=== PATIENT | male | born 1940 | race Caucasian/White ===

== ENCOUNTER 2017-04-01 13:51 | Observation (INO) | payer OTHER ==
[~2017-04-01] VITALS: Ht 180.3 cm; Wt 107.5 kg
[2017-04-01 14:39] LABS: microscopic required? NO
[2017-04-01 14:45] LABS: BASOPHIL % 0.6 % (0-2); PLATELET COUNT 166 x10^3mcL (130-400); RED CELL DISTRIBUTION WIDTH 14.4 % (11.5-14.5)
[2017-04-01 14:50] LABS: UA SPECIFIC GRAVITY 1.025 (1.005-1.035); urine erythrocyte NEGATIVE (NEGATIVE)
[2017-04-01 14:59] LABS: CALCIUM 8.8 mg/dL (8.5-10.1); CARBON DIOXIDE 26.7 mmol/L (21-32); CHLORIDE SERUM 102 mmol/L (98-107); CREATININE SERUM 1.1 mg/dL (0.7-1.3); GLUCOSE SERUM 139 mg/dL (74-106); POTASSIUM SERUM 3.5 mmol/L (3.5-5.1); SODIUM SERUM 141 mmol/L (136-145)
[2017-04-01 15:11] LABS: ALBUMIN 3.6 g/dL (3.4-5.0); ALKALINE PHOSPHATASE 48 U/L (46-116); ALT/SGPT 16 U/L (16-63); AST/SGOT 16 U/L (15-37); BILIRUBIN TOTAL 0.8 mg/dL (0.20-1.00); TOTAL PROTEIN, SERUM 6.8 g/dL (6.4-8.2)
[2017-04-01 15:12] LABS: CK-MB 1.1 ng/mL (0-3.6)
[2017-04-01] MEDS ORDERED: NEU300 PO (15:57)
[2017-04-01] MEDS ORDERED: HYDRALAZINE HCL25 MG PO (15:57)
[2017-04-01] MEDS ORDERED: SYNTHROID0.075 MG PO (15:57)
[2017-04-01] MEDS ORDERED: PRILOSEC OTC20 M1 PO (15:57)
[2017-04-01] MEDS ORDERED: ZESTRIL20 MG PO (15:58)
[2017-04-01] MEDS ORDERED: VITAMIN-D1000 IU PO (15:58)
[2017-04-01] MEDS ORDERED: ASPIR 8181 MG PO (15:58)
[2017-04-01] MEDS ORDERED: VITAMIN B121000 MCG PO (15:58)
[2017-04-01 16:42] LABS: MAGNESIUM 2.1 mg/dL (1.8-2.4); PHOSPHOROUS 2.6 mg/dL (2.5-4.9)
[2017-04-01 16:43] VITALS: BP 173/65
[2017-04-01 16:47] LABS: AMPHETAMINE QUAL UR NONE DETECTED (NEG <=1000)
[2017-04-01 16:48] LABS: CHOLESTEROL/HDL RATIO 2.2
[2017-04-01 21:05] VITALS: BP 171/90
[2017-04-02 05:33] VITALS: BP 138/70
[2017-04-02 07:13] LABS: CALCIUM 8.5 mg/dL (8.5-10.1); CARBON DIOXIDE 28.1 mmol/L (21-32); CHLORIDE SERUM 103 mmol/L (98-107); CREATININE SERUM 0.8 mg/dL (0.7-1.3); GLUCOSE SERUM 109 mg/dL (74-106); MAGNESIUM 1.9 mg/dL (1.8-2.4); PHOSPHOROUS 2.2 mg/dL (2.5-4.9); POTASSIUM SERUM 3.6 mmol/L (3.5-5.1); SODIUM SERUM 140 mmol/L (136-145)
[2017-04-02 07:52] LABS: BASOPHIL % 0.3 % (0-2); PLATELET COUNT 134 x10^3mcL (130-400)
[2017-04-02] MEDS ORDERED: ACETAMINOPHEN-H1 TA1 PO (09:46)
[2017-04-02 09:56] VITALS: BP 138/70
[2017-04-02 10:24] VITALS: BP 121/53
== END 2017-04-02 13:09 | disposition home or self-care (01) | DRG 445 ==
LOC: ED 13:51 → DU 15:51
PROVIDERS: Emergency Medicine; Family Medicine
DX: K80.20 Calculus of gallbladder without cholecystitis without obstruction (principal); R65.10 Systemic inflammatory response syndrome (SIRS) of non-infectious origin without acute organ dysfunction; I16.0 Hypertensive urgency; K21.9 Gastro-esophageal reflux disease without esophagitis; I25.10 Atherosclerotic heart disease of native coronary artery without angina pectoris; I71.9 Aortic aneurysm of unspecified site, without rupture; G62.9 Polyneuropathy, unspecified; E55.9 Vitamin D deficiency, unspecified; E03.9 Hypothyroidism, unspecified; Z68.33 Body mass index [BMI] 33.0-33.9, adult; Z87.891 Personal history of nicotine dependence; Z79.82 Long term (current) use of aspirin
CPT/HCPCS: 83880; G0378; J1885; J2270; J2405; J3010; J7030